=== PATIENT | female | born 1980 | race Caucasian/White ===

== ENCOUNTER 2025-09-14 16:30 | Emergency (ER) | payer OTHER ==
[~2025-09-14] VITALS: Ht 170.2 cm; Wt 56.8 kg
[2025-09-14 18:55] LABS: BASO # 0.0 10^3/uL (0.0-0.2); BASO % 0.2 % (0.0-1.0); EOS # 0.1 10^3/uL (0.0-0.5); EOS % 0.6 % (0.0-3.0); LYMPH # 1.7 10^3/uL (1.5-5.0); LYMPH % 16.6 % (24.0-44.0); MONO # 0.5 10^3/uL (0.0-0.8); MONO % 4.6 % (2.0-8.0); NEUTROPHILS # 7.7 10^3/uL (1.5-8.5); NEUTROPHILS % 77.6 % (36.0-66.0); PLATELET COUNT, AUTOMATED 213 10^3/uL (150-450)
[2025-09-14 19:01] LABS: ETHYL ALCOHOL (ETHANOL) < 0.003 % (0.000-0.010)
[2025-09-14 19:03] LABS: CALCIUM LEVEL 10.2 MG/DL (8.5-10.1); CARBON DIOXIDE LEVEL 24 MMOL/L (20-31); CHLORIDE LEVEL 101 MMOL/L (98-107); CK-MB VALUE MASS < 1.0 NG/ML (<3.6); CPK CREATINE PHOSPHOKINASE 71 U/L (34-145); CREATININE FOR GFR 0.94 MG/DL (0.55-1.30); GLOMERULAR FILTRATION RATE 75.3 (>58); HCG, SERUM QUALITATIVE NEGATIVE (NEGATIVE); MAGNESIUM LEVEL 2.1 MG/DL (1.8-2.4); POTASSIUM SERUM 3.9 MMOL/L (3.5-5.1); SODIUM LEVEL 138 MMOL/L (136-145)
[2025-09-14 19:24] LABS: ALT/SGPT 24 U/L (7.0-40); AST/SGOT 23 U/L (<34)
[2025-09-14] MEDS: NS (Normal Saline) 0.9% 1,000 ML IV ONE ×2 (20:08→21:40)
[2025-09-14 22:17] LABS: AMPHETAMINES LEVEL URINE NEGATIVE (NEGATIVE)
[2025-09-14 22:18] LABS: BARBITURATES URINE NEGATIVE (NEGATIVE); BENZODIAZEPINES URINE NEGATIVE (NEGATIVE); COCAINE METABOLITE URINE NEGATIVE (NEGATIVE); METHADONE URINE NEGATIVE (NEGATIVE); OPIATES URINE NEGATIVE (NEGATIVE); PHENCYCLIDINE URINE NEGATIVE (NEGATIVE)
[2025-09-14 22:27] LABS: FREE T4 1.33 NG/DL (0.89-1.76)
[2025-09-14 22:35] LABS: CANNABINOIDS URINE POSITIVE (NEGATIVE)
[2025-09-14 23:00] VITALS: BP 114/72; TEMP 97.9; O2SAT 100
== END 2025-09-14 23:14 | disposition home or self-care (01) ==
LOC: EDBD 16:30 → M ED 16:30
DX: R55 Syncope and collapse (principal); E02 Subclinical iodine-deficiency hypothyroidism; R00.1 Bradycardia, unspecified; M43.17 Spondylolisthesis, lumbosacral region; M79.7 Fibromyalgia; F17.210 Nicotine dependence, cigarettes, uncomplicated; F12.10 Cannabis abuse, uncomplicated; F10.10 Alcohol abuse, uncomplicated; Z88.6 Allergy status to analgesic agent; Z88.1 Allergy status to other antibiotic agents